=== PATIENT | female | born 1955 | race Caucasian/White ===

== ENCOUNTER 2020-07-05 08:11 | Outpatient (CLI) | payer MEDICARE ==
[2020-07-05] MEDS ORDERED: EPINEPHrine 1 MG/ML AMP ONE (08:45)
[2020-07-05] MEDS ORDERED: Iopamidol 300 61% 50 ML VIAL FS ONE (08:45)
[2020-07-05] MEDS ORDERED: Lidocaine 1% PF 10 ML AMP ONE (08:45)
--- NOTE | 2020-07-05 10:06 | RAD ---
Arthrogram left shoulder HISTORY: Internal derangement. FINDINGS: After explaining the procedure and answering all questions, the anterior aspect of the left shoulder was prepped and draped in usual sterile fashion. Sterile technique, buffered local anesthesia, fluoroscopic guidance, and an anterior approach were us ed to carefully advance the tip of a 22-gauge spinal needle to the joint capsule at the level of the humeral head. A total volume of 10 cc containing normal saline, 1% lidocaine, and iodinated contrast was carefully instilled into the joint capsule under fluoroscopic control. Needle was removed and spot images obtained. Contrast remained within the joint capsule at the time of fluoroscopy. Multiple intracapsul ar loose bodies evident at the axillary and subcoracoid recesses. Patient tolerated the procedure well and was transferred to CT in good condition for further imaging. IMPRESSION : Technically successful left shoulder arthrogram. CT pending.
--- NOTE | 2020-07-05 10:29 | CT ---
EXAM: CT arthrogram left shoulder with intra-articular contrast PROVIDED CLINICAL HISTORY: Pain COMPARISON: None FINDINGS: There is no evidence for full-thickness rotator cuff tear. There is supraspinatus muscular volume los s without fatty infiltration. There is extensive glenohumeral articular cartilage loss with joint space narrowing and periarticular osteophyte formation. Small subcortical cysts are seen, most conspicuously at the inferior aspect of the glenoid. There are numerous calcified intra-articular bodies present within the superior subsc apularis recess, largest of which measures about 1.6 cm. There is a calcified body within the inferior aspects of the long head biceps tendon sheath. There is no evidence for fracture or other acute osseous abnormality. The glenohumeral relationship a ppears maintained. Mild acromioclavicular joint degenerative changes are seen with mass effect upon the subjacent supraspinatus. No significant subacromial subdeltoid bursal fluid is evident. The visualized left lung field appears clear. There is no evidence for axillary lymph node enlargemen t. IMPRESSION: 1. No evidence for full-thickness rotator cuff tear. 2. 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 3. Acromioclavicular joint osteoarthrosis, with mass effect upon the subjacent supraspinatus.
== END 2020-07-05 08:12 | disposition home or self-care (01) ==
LOC: RAD 08:11
PROVIDERS: ATTEND Orthopaedic Surgery
DX: M75.102 Unspecified rotator cuff tear or rupture of left shoulder, not specified as traumatic (principal); M25.512 Pain in left shoulder; M19.012 Primary osteoarthritis, left shoulder
CPT/HCPCS: 23350; J0171; J2001; Q9967

== ENCOUNTER 2020-08-22 08:33 | Observation (INO) | payer MEDICARE ==
[2020-08-21 11:33] VITALS: BMI 43.9
[2020-08-22 09:19] LABS: #Basophils 0.1 thou/uL (0.0-0.2); #Eosinphils 0.3 thou/uL (0.0-0.7); #Lymphocytes 3.1 thou/uL (1.20-3.40); #Monocytes 0.6 thou/uL (0.11-0.59); #Neutrophils 2.9 thou/uL (1.40-6.50); %Basophils 0.8 % (0.0-1.0); %Lymphocytes 45.2 % (21.0-51.0); Mean Corpuscular HGB CONC 33.1 g/dL (32.0-36.0); Mean Corpuscular Hemoglobin 31.7 pg (27.0-31.0); Mean Corpuscular Volume 95.9 fL (78.0-98.0); Mean Platelet Volume 8.6 fL (7.4-10.4); Platelet Count 195 thou/uL (130-400); RBC Distribution Width 11.9 % (11.5-14.5); Red Blood Cell (RBC) Count 3.77 mill/uL (4.20-5.40); White Blood Cell (WBC) Count 6.9 thou/uL (4.8-10.8)
[2020-08-22] MEDS ORDERED: Vancomycin 1.5 GRAM/300 ML BAG ONE ×2 (09:22→21:33)
[2020-08-22] MEDS ORDERED: Tranexamic Acid 1,000 MG/10 ML VIAL ONE ×2 (09:22→16:08)
[2020-08-22] MEDS ORDERED: Sodium Chloride 0.9% 100 ML ONE (09:22)
[2020-08-22 09:36] LABS: Anion Gap 9 mmol/L (10-20); BUN (Urea Nitrogen) 15 mg/dL (9.8-20.1); Calc. Creatinine Clearance 137 mL/min (70-130); Calcium 8.7 mg/dL (7.8-10.44); Carbon Dioxide 28 mmol/L (23-31); Chloride 103 mmol/L (98-107); Glucose 106 mg/dL (80-115); Sodium 136 mmol/L (136-145)
[2020-08-22 09:52] LABS: SARS-CoV-2 NAA Rapid Test Not Detected (NotDetected)
[2020-08-22] MEDS ORDERED: Midazolam HCl 2 mg/2 ml Vial ONE (10:00)
[2020-08-22] MEDS ORDERED: Lidocaine 1% (PF) 30 ML VIAL ONE (10:00)
[2020-08-22] MEDS ORDERED: Fentanyl 100 MCG/2 ML VIAL ONE ×6 (10:00→19:02)
[2020-08-22] MEDS ORDERED: PHENYLEPHRINE-NS 100 MCG/ML 10 ML SYRINGE ONE (10:18)
[2020-08-22] MEDS ORDERED: ePHEDrine 50 MG/ML VIAL ONE (10:18)
[2020-08-22] MEDS ORDERED: Rocuronium Bromide 10 MG/ML (10ML VIAL) ONE (10:18)
[2020-08-22] MEDS ORDERED: Lidocaine 1% PF 5 ML VIAL ONE (10:18)
[2020-08-22] MEDS ORDERED: Metoclopramide HCl 10 MG/2 ML VIAL ONE (10:18)
[2020-08-22] MEDS ORDERED: PROPOFOL 200 MG/20 ML VIAL ONE (10:18)
[2020-08-22] MEDS ORDERED: Ondansetron PF 4 MG/2 ML Vial ONE (10:18)
[2020-08-22] MEDS ORDERED: Dexamethasone 20 MG/5 ML VIAL ONE (10:18)
[2020-08-22] MEDS ORDERED: Ropivacaine 0.5% HCl/PF (150 MG/30 ML VIAL) ONE (10:22)
[2020-08-22] MEDS ORDERED: traMADol HCl 50 MG TAB PO PRN ×3 (10:30→11:20)
[2020-08-22] MEDS ORDERED: Ropivacaine 0.2% 550 ML 550 ML NERVE BLCK SCH (10:30)
[2020-08-22] MEDS ORDERED: Promethazine HCl 25 MG/ML VIAL IM PRN (10:30)
[2020-08-22] MEDS ORDERED: Ondansetron PF 4 MG/2 ML Vial IVP PRN (10:30)
[2020-08-22] MEDS ORDERED: HYDROcodone/Acetaminophen 10/325 mg Tablet PO PRN ×2 (10:30)
[2020-08-22] MEDS ORDERED: Zolpidem Tartrate 5 MG TAB PO PRN (10:30)
[2020-08-22] MEDS ORDERED: Montelukast Sodium 10 mg Tablet PO PRN (11:20)
[2020-08-22] MEDS ORDERED: glipiZIDE 5 MG TAB PO PRN (11:20)
[2020-08-22] MEDS ORDERED: Aspirin 81 mg Enteric Coated Tablet PO SCH (11:30)
[2020-08-22] MEDS ORDERED: Phenylephrine 10 MG/ML VIAL ONE (16:11)
[2020-08-22] MEDS ORDERED: SUGAMMADEX SODIUM 200 MG/2 ML VIAL ONE (17:30)
[2020-08-22] MEDS ORDERED: Melatonin 3 MG TAB PO SCH (21:00)
[2020-08-22] MEDS ORDERED: HYDROcodone/Acetaminophen 10/325 mg Tablet ONE (21:06)
[2020-08-22] MEDS: HYDROcodone/Acetaminophen 10/325 mg Tablet PO PRN (21:10)
[2020-08-22] MEDS ORDERED: Vancomycin HCl 1.5 GM in Sodium Chloride 0.9% 250 ML 300 ML IVPB SCH (22:00)
--- NOTE | 2020-08-22 22:17 | EKG ---
Test Reason : PREOP Blood Pressure : / mmHG Vent. Rate : 054 BPM Atrial Rate : 054 BPM P-R Int : 138 ms QRS Dur : 098 ms QT Int : 450 ms P-R-T Axes : 009 -07 -11 degrees QTc Int : 426 ms Sinus bradycardia Otherwise normal ECG No previous ECGs available Confirmed by Chivo ARTIS ([id number]) on 08/22/2020 10:16:41 PM Referred By: ERIBERTO Confirmed By:Chivo ARTIS
[2020-08-22] MEDS: CEFAZOLIN 2 GM in Premix Bag 1 BAG IVPB SCH (22:25)
[2020-08-22] MEDS: Ketorolac Tromethamine 30 MG/ML VIAL IVP SCH (23:07)
[2020-08-22] MEDS: Dextrose 5 %-0.45 % NaCl 1,000 ML IV SCH (23:07)
[2020-08-23] MEDS ORDERED: Fentanyl 100 MCG/2 ML VIAL ONE ×2 (00:07→02:55)
[2020-08-23] MEDS ORDERED: Ketorolac Tromethamine 30 MG/ML VIAL ONE ×2 (00:13→09:09)
[2020-08-23] MEDS ORDERED: HYDROcodone/Acetaminophen 10/325 mg Tablet ONE ×3 (00:13→10:47)
[2020-08-23] MEDS: Ketorolac Tromethamine 30 MG/ML VIAL IVP SCH ×2 (00:18→05:49)
[2020-08-23] MEDS: HYDROcodone/Acetaminophen 10/325 mg Tablet PO PRN ×3 (00:19→11:27)
[2020-08-23] MEDS: Fentanyl 100 MCG/2 ML VIAL IV PRN ×2 (00:19→03:22)
[2020-08-23] MEDS: Dextrose 5 %-0.45 % NaCl 1,000 ML IV SCH (03:36)
[2020-08-23] MEDS: CEFAZOLIN 2 GM in Premix Bag 1 BAG IVPB SCH (05:33)
[2020-08-23 05:36] VITALS: BP 177/94; TEMP 96.8
--- NOTE | 2020-08-23 08:47 | OP ---
DATE OF PROCEDURE: 08/22/2020 PREOPERATIVE DIAGNOSIS: Degenerative arthritis of the left shoulder with a clinically nonfunctional rotator cuff and multiple loose bodies. POSTOPERATIVE DIAGNOSES: Degenerative arthritis of the left shoulder with a clinically nonfunctional rotator cuff and multiple loose bodies with severe biceps tendinitis. PROCEDURES: Left reverse total shoulder arthroplasty and biceps tenodesis. Loose bodies were also removed incidentally. ASSOCIATE SPA DIRECTOR: JULIANNE Terry BLOOD LOSS: 200. SPECIMENS: None. DRAINS: None. COMPLICATIONS: None. IMPLANTS USED: YAMAP Tornier, glenoid R2, base plate is 25 mm, standard, 4 screws were used in usual fashion, Glenosphere at 36 mm, 25 standard centered, humerus is a flex 4B, trace high offset, poly is 36 mm B. NARRATIVE REPORT: After appropriate consent was obtained, the patient was taken to the operating room where general anesthesia was induced. The patient was placed in a beach chair position. Left arm was prepped and draped in the usual sterile fashion. Oblique incision was made in the deltopectoral interval. Cephalic vein was identified and preserved. Dissection was carried down to the conjoint tendon which was retracted medially. The subscapularis was taken down. The biceps tendon was in poor condition. It was taken down off the superior glenoid tubercle and tenodesed to the pectoralis tendon. Excess tendon was removed. The shoulder was then easily dislocated. I opened the humerus with a T handle and then cut a 20 mm retroversion superior cut. The subscapularis had been previously tagged. I used a subscapularis to follow this down to the anterior glenoid and a Bankart retractor was placed anteriorly, and drill was placed posteriorly. I drilled a center hole in the glenoid and reamed with a 1-step reamer. Irrigation was performed. The base plate was deployed without difficulty. Screws were inserted in the usual technique with good compression and fixation. Glenosphere was deployed without difficulty and the screw was tightened. Attention was turned back to the humerus which was opened with a T handle, and after using the acetabular reamer, I then also used a metaphyseal reamer. The appropriate size stem was trialed and polyethylene was trialed until the implants were determined as above. I did drill holes through the humerus, and a cottony Dacron suture was placed around the prosthesis through bone to facilitate repair of the subscapularis. Irrigation was performed. Permanent implants were placed. Shoulder was reduced. The subscapularis was repaired back to bone using the cottony Dacron suture. Irrigation performed again. The deltopectoral interval was tacked shut with 0 Vicryl, subcutaneous tissue was closed with 2-0 Vicryl, skin was closed with andra, and sterile dressing was applied. Job ID: [id number]
[2020-08-23] MEDS ORDERED: Zinc Sulfate 220 MG CAP PO SCH (09:00)
[2020-08-23] MEDS ORDERED: Losartan/Hydrochlorothiazide 100 mg/25 mg Tablet PO SCH (09:00)
[2020-08-23] MEDS ORDERED: Cholecalciferol 1,000 UNITS (25 MCG) TAB PO SCH (09:00)
[2020-08-23] MEDS ORDERED: Calcium Polycarbophil 625 MG TAB PO SCH (09:00)
[2020-08-23] MEDS ORDERED: Atorvastatin Calcium 10 MG TAB PO SCH (21:00)
--- NOTE | 2020-08-24 13:09 | PDOC.BPN ---
- Brief Progress Note Encounter Date: 08/24/20 Encounter Time: 13:08 Delayed entry Chart reviewed as Physician Advisor for purpose of status and agree with change to Observation status as the surgery is not considered inpatient only by CMS guidelines. Code 44 applied with change to observation status requested by Dr. Toney and supported by me.
== END 2020-08-23 13:45 | disposition home or self-care (01) ==
LOC: SDC 08:33 → PACU-TCU 11:18 → INTOOBSV 11:19
PROVIDERS: ADMIT Orthopaedic Surgery; ATTEND Orthopaedic Surgery
PROC: 0RRK00Z Replacement of Left Shoulder Joint with Reverse Ball and Socket Synthetic Substitute, Open Approach (ICD-10-PCS; principal; 2020-08-22)
PROC: 0LS40ZZ Reposition Left Upper Arm Tendon, Open Approach (ICD-10-PCS; 2020-08-22)
PROC: 3E0T3BZ Introduction of Anesthetic Agent into Peripheral Nerves and Plexi, Percutaneous Approach (ICD-10-PCS; 2020-08-22)
DX: M19.012 Primary osteoarthritis, left shoulder (principal); M75.22 Bicipital tendinitis, left shoulder; M24.012 Loose body in left shoulder; M24.812 Other specific joint derangements of left shoulder, not elsewhere classified; G89.18 Other acute postprocedural pain; I10 Essential (primary) hypertension; E78.5 Hyperlipidemia, unspecified; G47.30 Sleep apnea, unspecified; F32.9 Major depressive disorder, single episode, unspecified; E66.01 Morbid (severe) obesity due to excess calories; Z68.41 Body mass index [BMI] 40.0-44.9, adult; Z87.891 Personal history of nicotine dependence; Z79.1 Long term (current) use of non-steroidal anti-inflammatories (NSAID); Z79.899 Other long term (current) drug therapy; Z96.653 Presence of artificial knee joint, bilateral; Z20.822 Contact with and (suspected) exposure to COVID-19
CPT/HCPCS: 80048; 85025; 93005; 93010; A4306; C1713; J0690; J1100; J1885; J2001; J2250; J2370; J2405; J2704; J2765; J2795; J3010; J3370; J3490; J7050; U0002

== ENCOUNTER 2022-10-16 12:36 | Inpatient (IN) | payer MEDICARE ==
[2022-10-16] MEDS ORDERED: Ondansetron PF 4 MG/2 ML Vial ONE (13:52)
[2022-10-16 14:13] LABS: #Eosinphils 0.1 thou/uL (0.0-0.7); #Monocytes 0.6 thou/uL (0.11-0.59); #Neutrophils 2.9 thou/uL (1.40-6.50); %Basophils 0.8 % (0.0-1.0); %Eosinophils 1.2 % (0.0-10.0); %Lymphocytes 22.4 % (21.0-51.0); %Monocytes 12.2 % (0.0-10.0); %Neutrophils 63.5 % (42.0-75.0); Hemoglobin 11.9 g/dL (12.0-16.0); Mean Corpuscular HGB CONC 33.5 g/dL (32.0-36.0); Mean Corpuscular Hemoglobin 31.1 pg (27.0-31.0); Mean Corpuscular Volume 92.9 fl (78.0-98.0); Mean Platelet Volume 8.6 fL (7.4-10.4); Platelet Count 154 10x3/uL (130-400); RBC Distribution Width 14.3 % (11.5-14.5); Red Blood Cell (RBC) Count 3.82 mill/uL (4.20-5.40); White Blood Cell (WBC) Count 4.6 10x3/uL (4.8-10.8)
[2022-10-16] MEDS ORDERED: Morphine 2 MG/ML VIAL ONE (14:15)
[2022-10-16 14:39] LABS: ALT (SGPT) 32 U/L (8-55); AST (SGOT) 39 U/L (5-34); Alkaline Phosphatase 88 U/L (40-110); Anion Gap 14 mmol/L (10-20); BUN (Urea Nitrogen) 7 mg/dL (9.8-20.1); Bilirubin, Total 0.8 mg/dL (0.2-1.2); Calc. Creatinine Clearance 0 mL/min (70-130); Calcium 8.3 mg/dL (7.8-10.44); Carbon Dioxide 29 mmol/L (23-31); Chloride 97 mmol/L (98-107); Estimated GFR 96; Globulin 2.6 g/dL (2.4-3.5); Glucose 135 mg/dL (80-115); Lipase 45 U/L (8-78); Potassium 2.8 mmol/L (3.5-5.1); Protein, Total 5.6 g/dL (5.8-8.1); Sodium 137 mmol/L (136-145)
[2022-10-16] MEDS ORDERED: Ondansetron PF 4 MG/2 ML Vial IVP PRN (17:55)
[2022-10-16] MEDS ORDERED: Acetaminophen 650 MG Suppository PR PRN (17:55)
[2022-10-16] MEDS ORDERED: Acetaminophen 325 MG TAB PO PRN (17:55)
[2022-10-16] MEDS ORDERED: Electrolyte Replacement Protocol 1 EACH FS SCH (18:00)
[2022-10-16] MEDS ORDERED: Promethazine HCl 12.5 MG in Sodium Chloride 0.9% 100 ML IVPB SCH (18:15)
[2022-10-16 18:19] VITALS: BMI 37.8
[2022-10-16] MEDS: Sodium Chloride 0.9% 1,000 ML IV SCH (18:41)
[2022-10-16] MEDS ORDERED: Promethazine HCl 12.5 MG in Sodium Chloride 0.9% 50 ML IVPB PRN (19:03)
[2022-10-16 19:46] LABS: Magnesium 1.4 mg/dL (1.6-2.6); Phosphorus 2.3 mg/dL (2.3-4.7)
[2022-10-16] MEDS ORDERED: Magnesium 2 GM/50 ML(in water) 2 GM in Premix Bag 1 BAG IVPB SCH (20:00)
[2022-10-16] MEDS: Pantoprazole 40 MG VIAL IVP SCH (21:23)
[2022-10-16] MEDS: Ondansetron HCl/PF 8 MG in Sodium Chloride 0.9% 50 ML IVPB SCH (22:27)
[2022-10-16] MEDS: Potassium Chloride 20 MEQ in Premix Bag 1 BAG IVPB SCH (22:54)
[2022-10-17] MEDS: Potassium Chloride 20 MEQ in Premix Bag 1 BAG IVPB SCH ×3 (01:11→15:27)
[2022-10-17 04:28] LABS: Bilirubin 1+ (Negative); Blood, Urine Negative (Negative); Clarity Turbid (Clear); Glucose, Urine (Dipstick) 50 mg/dL (Negative); Ketone, Urine 20 mg/dL (Negative); Leukocyte 250 Leu/uL (Negative); Mucous/LPF 4+ LPF (<2+); Nitrite Negative (Negative); Protein, Urine (Dipstick) 70 mg/dL (Neg-Trace); Specific Gravity, Urine 1.028 (1.002-1.036); Squamous Epithelial 0-3 HPF (0-3); Urobilinogen Greater than 12 mg/dL (Less than 2); WBC/HPF 21-50 HPF (0-3); pH, Urine 6.5 (5.0-9.0)
[2022-10-17 04:32] LABS: Bacteria/HPF 1+ HPF (None Seen)
[2022-10-17] MEDS: cefTRIAXone\\ROCEPHIN 1 GM in Sodium Chloride 0.9% 100 ML IVPB SCH (05:20)
[2022-10-17 05:51] LABS: #Eosinphils 0.1 thou/uL (0.0-0.7); #Lymphocytes 0.8 thou/uL (1.20-3.40); #Monocytes 0.5 thou/uL (0.11-0.59); %Basophils 0.8 % (0.0-1.0); %Eosinophils 1.7 % (0.0-10.0); %Lymphocytes 23.5 % (21.0-51.0); %Monocytes 14.1 % (0.0-10.0); %Neutrophils 59.8 % (42.0-75.0); Hemoglobin 10.1 g/dL (12.0-16.0); Mean Corpuscular HGB CONC 33.1 g/dL (32.0-36.0); Mean Corpuscular Hemoglobin 31.5 pg (27.0-31.0); Mean Corpuscular Volume 95.1 fl (78.0-98.0); Mean Platelet Volume 8.4 fL (7.4-10.4); Platelet Count 156 10x3/uL (130-400); RBC Distribution Width 14.6 % (11.5-14.5); Red Blood Cell (RBC) Count 3.22 mill/uL (4.20-5.40); White Blood Cell (WBC) Count 3.3 10x3/uL (4.8-10.8)
[2022-10-17 06:17] LABS: ALT (SGPT) 30 U/L (8-55); AST (SGOT) 35 U/L (5-34); Albumin 2.8 g/dL (3.4-4.8); Alkaline Phosphatase 80 U/L (40-110); Anion Gap 12 mmol/L (10-20); BUN (Urea Nitrogen) 7 mg/dL (9.8-20.1); Bilirubin, Total 0.8 mg/dL (0.2-1.2); Calc. Creatinine Clearance 130 mL/min (70-130); Carbon Dioxide 29 mmol/L (23-31); Chloride 99 mmol/L (98-107); Estimated GFR 96; Globulin 2.4 g/dL (2.4-3.5); Glucose 118 mg/dL (80-115); Potassium 3.4 mmol/L (3.5-5.1); Protein, Total 5.2 g/dL (5.8-8.1); Sodium 137 mmol/L (136-145)
[2022-10-17] MEDS ORDERED: Dexamethasone 10 MG in Sodium Chloride 0.9% 50 ML IVPB SCH (09:00)
[2022-10-17] MEDS ORDERED: PROPOFOL 200 MG/20 ML VIAL ONE (10:06)
[2022-10-17] MEDS ORDERED: Lidocaine 1% PF 5 ML VIAL ONE (10:06)
[2022-10-17] MEDS ORDERED: Morphine Sulfate 2 MG/ML SYRINGE SLOW IVP PRN (10:13)
[2022-10-17] MEDS ORDERED: Ondansetron HCl/PF 4 MG/2 ML Vial IVP PRN (10:13)
[2022-10-17] MEDS ORDERED: Promethazine HCl 25 MG/ML VIAL IM PRN (10:13)
[2022-10-17] MEDS ORDERED: HYDROmorphone 2 MG/ML VIAL SLOW IVP PRN (10:13)
[2022-10-17] MEDS: Sodium Chloride 0.9% 1,000 ML IV SCH (10:25)
[2022-10-17] MEDS ORDERED: Dexamethasone 4 mg/ml Vial SLOW IVP SCH (11:00)
[2022-10-17] MEDS ORDERED: diphenhydrAMINE 50 MG/ML VIAL ONE (11:31)
[2022-10-17] MEDS: D5 0.9% NS w/ 20 mEq KCl 1,000 ML IV SCH (11:37)
[2022-10-17] MEDS: Sucralfate 1 GM/10 ML UDCUP PO SCH ×3 (11:42→21:12)
[2022-10-17] MEDS: Pantoprazole 40 MG VIAL IVP SCH ×2 (11:43→20:06)
[2022-10-17] MEDS: Ondansetron HCl/PF 8 MG in Sodium Chloride 0.9% 50 ML IVPB SCH ×2 (13:23→21:10)
[2022-10-17] MEDS ORDERED: Mirtazapine 15 MG Soltab PO SCH (21:00)
[2022-10-18] MEDS: D5 0.9% NS w/ 20 mEq KCl 1,000 ML IV SCH (02:28)
[2022-10-18] MEDS: cefTRIAXone\\ROCEPHIN 1 GM in Sodium Chloride 0.9% 100 ML IVPB SCH (05:12)
[2022-10-18 05:33] VITALS: TEMP 97.7
[2022-10-18 07:23] LABS: #Lymphocytes 0.7 thou/uL (1.20-3.40); #Monocytes 0.4 thou/uL (0.11-0.59); #Neutrophils 2.5 thou/uL (1.40-6.50); %Basophils 0.5 % (0.0-1.0); %Eosinophils 0.8 % (0.0-10.0); %Lymphocytes 18.5 % (21.0-51.0); %Neutrophils 69.1 % (42.0-75.0); Hemoglobin 10.2 g/dL (12.0-16.0); Mean Corpuscular HGB CONC 34.4 g/dL (32.0-36.0); Mean Corpuscular Hemoglobin 32.3 pg (27.0-31.0); Mean Corpuscular Volume 94.1 fl (78.0-98.0); Mean Platelet Volume 8.6 fL (7.4-10.4); Platelet Count 147 10x3/uL (130-400); RBC Distribution Width 14.4 % (11.5-14.5); Red Blood Cell (RBC) Count 3.16 mill/uL (4.20-5.40); White Blood Cell (WBC) Count 3.6 10x3/uL (4.8-10.8)
[2022-10-18 07:56] LABS: ALT (SGPT) 27 U/L (8-55); AST (SGOT) 32 U/L (5-34); Albumin 2.8 g/dL (3.4-4.8); Alkaline Phosphatase 87 U/L (40-110); Anion Gap 13 mmol/L (10-20); BUN (Urea Nitrogen) 4 mg/dL (9.8-20.1); Bilirubin, Total 0.4 mg/dL (0.2-1.2); Calc. Creatinine Clearance 146 mL/min (70-130); Calcium 8.6 mg/dL (7.8-10.44); Carbon Dioxide 24 mmol/L (23-31); Chloride 108 mmol/L (98-107); Estimated GFR 99; Globulin 2.5 g/dL (2.4-3.5); Glucose 124 mg/dL (80-115); Potassium 3.7 mmol/L (3.5-5.1); Protein, Total 5.3 g/dL (5.8-8.1); Sodium 141 mmol/L (136-145)
[2022-10-18] MEDS: Sucralfate 1 GM/10 ML UDCUP PO SCH (08:03)
[2022-10-18] MEDS: Pantoprazole 40 MG VIAL IVP SCH (08:04)
[2022-10-18] MEDS: Ondansetron HCl/PF 8 MG in Sodium Chloride 0.9% 50 ML IVPB SCH (08:04)
[2022-10-18 08:31] VITALS: BP 163/72
[2022-10-18] MEDS ORDERED: Dexamethasone 4 mg/ml Vial SLOW IVP SCH (09:00)
== END 2022-10-18 12:27 | disposition home or self-care (01) | DRG 392 ==
LOC: ERS 12:36 → ERHOLD 17:55 → SJJU 20:28 → OBSVTOIN 10-17 12:23
PROVIDERS: ADMIT Hospitalist; ATTEND Internal Medicine
PROC: 0DB28ZX Excision of Middle Esophagus, Via Natural or Artificial Opening Endoscopic, Diagnostic (ICD-10-PCS; principal; 2022-10-17)
DX: K20.80 Other esophagitis without bleeding (principal); C77.9 Secondary and unspecified malignant neoplasm of lymph node, unspecified; C34.32 Malignant neoplasm of lower lobe, left bronchus or lung; N30.00 Acute cystitis without hematuria; F41.9 Anxiety disorder, unspecified; F32.A Depression, unspecified; K57.90 Diverticulosis of intestine, part unspecified, without perforation or abscess without bleeding; E83.42 Hypomagnesemia; E87.6 Hypokalemia; Z96.651 Presence of right artificial knee joint; T66.XXXA Radiation sickness, unspecified, initial encounter; Z96.612 Presence of left artificial shoulder joint; Z88.8 Allergy status to other drugs, medicaments and biological substances; Z79.4 Long term (current) use of insulin; Z79.84 Long term (current) use of oral hypoglycemic drugs; Z79.899 Other long term (current) drug therapy; Z90.49 Acquired absence of other specified parts of digestive tract
CPT/HCPCS: 36415; 74176; 80053; 81003; 81015; 83605; 83690; 83735; 84100; 85025; 88305; 94760; 96361; 96365; 96366; 96367; 96374; 96375; 96376; C9113; G0378; J0696; J1100; J1200; J1642; J2272; J2405; J2550; J2704; J3475; J3480; J3490; J7050